=== PATIENT | female | born 1975 | race Caucasian/White ===

== ENCOUNTER → 2020-09-09 | Outpatient (CLI) | payer BC, OTHER | LOC: EXRD 13:53 | DX: M54.5 Low back pain (principal); G89.29 Other chronic pain | CPT/HCPCS: 72202 ==

== ENCOUNTER → 2020-09-10 | Outpatient (CLI) | payer BC, OTHER | LOC: LAB 12:31 | DX: R76.8 Other specified abnormal immunological findings in serum (principal); D89.89 Other specified disorders involving the immune mechanism, not elsewhere classified; M25.50 Pain in unspecified joint | CPT/HCPCS: 36415; 99001; J7120 ==